=== PATIENT | male | born 1995 | race Caucasian/White ===

== ENCOUNTER 2020-02-29 17:17 | Emergency (ER) | payer BC ==
[2020-03-01 12:01] LABS: SARS-CoV-2 MS2 Positive; SARS-CoV-2 N Gene Negative; SARS-CoV-2 S Gene Negative; SARS-CoV-2 by NAA Not Detected (NotDetected); SARS-CoV-2 orf1ab Negative
== END 2020-02-29 17:40 | disposition home or self-care (01) ==
LOC: ERS 17:17
DX: Z20.828 Contact with and (suspected) exposure to other viral communicable diseases (principal); F17.290 Nicotine dependence, other tobacco product, uncomplicated
CPT/HCPCS: 87635; 99283; U0003